=== PATIENT | male | born 1965 | race Two or more races ===

== ENCOUNTER 2018-04-16 12:45 | Day surgery (SDC) | payer OTHER ==
[~2018-04-16] VITALS: Ht 175.3 cm; Wt 72.1 kg
[2018-04-16] MEDS ORDERED: ATORVASTATIN (13:21)
[2018-04-16] MEDS ORDERED: MELOXICAM (13:21)
[2018-04-16 13:25] VITALS: Ht 175.3 cm; Wt 72.1 kg
[2018-04-16 13:45] VITALS: BP 116/71; PULSE 64; RESP 18
[2018-04-16] MEDS ORDERED: MIDAZOLAM 1 MG/ML 2 ML INJ ONE ×3 (14:36→14:37)
[2018-04-16] MEDS ORDERED: FENTAnyl 50 MCG/ML VIAL ONE (14:36)
[2018-04-16 14:37] VITALS: BP 110/68; PULSE 61; RESP 18
== END 2018-04-16 15:57 | disposition home or self-care (01) ==
LOC: GIL 12:45
PROVIDERS: ATTEND Internal Medicine Gastroenterology
DX: Z12.11 Encounter for screening for malignant neoplasm of colon (principal); K64.8 Other hemorrhoids
CPT/HCPCS: 45378; J2250; J3010; Z7610